=== PATIENT | male | born 1985 | race Caucasian/White ===

== ENCOUNTER 2020-09-27 11:00 | Outpatient (RCR) | payer MEDICAID, SELFPAY | END 2020-09-27 23:59 | disposition home or self-care (01) | LOC: ANHAUDIO 11:00 | PROVIDERS: Referring Provider Otolaryngology; Visit Provider Otolaryngology | DX: Z46.1 Encounter for fitting and adjustment of hearing aid (principal) | CPT/HCPCS: 99199; V5160; V5261; V5264 ==

== ENCOUNTER 2023-02-02 13:53 | Emergency (ER) | payer MEDICARE, MEDICAID, SELFPAY ==
[2023-02-02 15:12] VITALS: BP 96/62; PULSE 62; RESP 18; TEMP 36.8; O2SAT 98
--- NOTE | 2023-02-02 15:31 | ED.EAR ---
HPI - Ear Problem General Chief complaint: Ear Stated complaint: earache Time Seen by Provider: 02/02/23 15:15 Source: patient Mode of arrival: ambulatory Limitations: no limitations History of Present Illness HPI Narrative: Yazan is a 37-year-old male patient presenting to the clinic today with complaints of right ear pain for the past 2-3 days. Mother reports that his ears draining in the drainage is very foul smelling. Drainage is brown in color. Patient has down syndrome. Related Data Allergies Allergy/AdvReac Type Severity Reaction Status Date / Time meperidine Allergy Unknown Unknown Verified 02/02/23 15:52 Penicillins Allergy Unknown Unknown Verified 02/02/23 15:52 Review of Systems Review of Systems: Pertinent positives per HPI. Patient denies any fever, chills, rash, headache, visual changes, dizziness, cough, runny nose, sore throat, shortness of breath, chest pain, palpitations, nausea, vomiting, diarrhea, constipation, abdominal pain, or any urinary issues. PMFSH Family History Family History Mother Family history of osteoporosis Family history of bipolar disorder Patient's mother is in good health Father Patient's father is in good health Social History Social History Alcohol intake: never Comments At the time of my signature, I reviewed and agree with the nursing past medical, surgical, social, and family history. There is no relevant family history pertinent to the patient complaint. Exam Narrative: General: Well-developed, well nourished, in no apparent distress Head: Normocephalic, atraumatic Eyes: Pupils equally round and reactive to light bilaterally, EOM intact, sclera and conjunctive clear, no discharge, lids normal Ears: Left tM intact and clear, left ear canal clear, no drainage, rupture right TM with brown drainage noted in the right ear canal, decreased hearing on the right when compared to the left Nose: Nares patent, no discharge, no inflammation, no sinus tenderness. Mouth: Oropharynx without lesions or masses, good dentition, MMM. Neck: Supple, trachea midline, no enlargement of anterior or posterior cervical nodes, no thyroid masses or goiter palpable. Cardio: Regular rate and rhythm, s1 and s2 normal, no murmur appreciated. Resp: Clear to auscultation bilaterally anteriorly and posteriorly, no rhonchi, rales, wheezing or rubs Course Course Emergency Course: Portions of this record may have been created with voice recognition software. Level of Care: Express Care Visit Vital Signs Vital signs: Vital Signs Temperature 36.8 C 02/02/23 15:12 Pulse Rate 62 02/02/23 15:12 Respiratory Rate 18 02/02/23 15:12 Blood Pressure 96/62 L 02/02/23 15:12 Pulse Oximetry 98 02/02/23 15:12 Oxygen Delivery Room Air 02/02/23 15:12 Temperature 36.8 C 02/02/23 15:12 Pulse Rate 62 02/02/23 15:12 Respiratory Rate 18 02/02/23 15:12 Blood Pressure 96/62 L 02/02/23 15:12 Pulse Oximetry 98 02/02/23 15:12 Oxygen Delivery Room Air 02/02/23 15:12 Vital signs reviewed Medical Decision Making MDM Narrative Medical decision making narrative: At the time of visit patient is resting comfortably on the exam table. Patient appears to be nontoxic. I suspect patient has a spontaneous rupture of the right TM. Prescription for ofloxacin ear drops and cefdinir was sent to the pharmacy. Supportive measures were discussed with the patient and they voiced understanding discharge instructions and agrees to treatment plan. Return precautions reviewed Differential Diagnosis Differential Diagnosis: Otitis media, otitis externa, eustachian tube dysfunction, cerumen impaction, tympanic membrane rupture, upper respiratory infection Vital Signs Vital Signs: Vital Signs Temperature 36.8 C 02/02/23 15:12 Pulse Rate 62 02/02/23 15
== END 2023-02-02 15:44 | disposition home or self-care (01) ==
PROVIDERS: Emergency Provider Nurse Practitioner Family; PCP Family Medicine
DX: H66.011 Acute suppurative otitis media with spontaneous rupture of ear drum, right ear (principal); Q90.9 Down syndrome, unspecified
CPT/HCPCS: 99213; G0463